=== PATIENT | female | born 1995 | race Caucasian/White ===

== ENCOUNTER 2021-12-04 23:22 | Emergency (ER) | payer OTHER, SELFPAY ==
[2021-12-04 23:23] VITALS: BP 118/65; PULSE 118; RESP 20; TEMP 36.3; O2SAT 100
--- NOTE | 2021-12-05 00:13 | ED.GENADULT ---
HPI - General Adult General Chief complaint: Extremity Problem,Nontraumatic Stated complaint: pain in bilateral legs Time Seen by Provider: 12/04/21 23:51 History of Present Illness HPI narrative: Patient is a 26-year-old female who presents ER with pain in her legs bilaterally. Ongoing for 2 weeks. Worsening over the last couple days. Reports she can barely touch the back of her thighs or knees or calves without having exquisite pain. She feels as though they are swollen but she has no pitting edema. She thinks that she had some bulging veins. No chest pain or chest pressure or difficulty breathing. No long distance car rides or recent trauma. She has an aunt who has antiphospholipid antibody and is prone to clotting. Patient has no known clotting disorder. She had outpatient blood work at a [facility] urgent care today. She had an unremarkable BMP/CBC/thyroid level. Patient reports she did recently have a viral illness but she took 2 days of prednisone and her coughing has since resolved. She took a COVID test at that time that was negative. Review of Systems Review of Systems: All systems reviewed & are unremarkable except as noted in HPI and below Constitutional: Constitutional: Denies chills, Denies fatigue and Denies fever(s) Cardiovascular: Cardiovascular: Denies chest pain, Denies rapid heart rate and Denies radiating jaw, neck or arm pain Respiratory: Respiratory: Denies chest congestion, Reports cough (Resolved) and Denies dyspnea Gastrointestinal: Gastrointestinal: Denies abdominal pain, Denies nausea and Denies vomiting Musculoskeletal: Musculoskeletal: Reports myalgias, Denies arthralgias, Denies joint swelling and Reports muscle cramps PMFSH Past Medical History Medical History (Updated 12/05/21 @ 02:39 by Santiago Montano MD) Healthy female adult Surgical History Surgical History (Updated 12/05/21 @ 00:44 by Santiago Montano MD) No history of previous surgery Social History Social History (Updated 12/05/21 @ 00:44 by Santiago Montano MD) Smoking status: Never smoker Exam Narrative: GENERAL: Well-appearing, well-nourished, and in no acute distress. HEAD: Normocephalic, atraumatic. EYES: PERRL and EOMI. CHEST: Clear to auscultation. No respiratory distress. HEART: Regular rate and rhythm. Normal peripheral pulses. ABDOMEN: Soft, nontender, nondistended. EXTREMITIES: Normal range of motion. No edema. Patient with reported discomfort to the posterior thighs and calves with negative Homans' sign. No bulging veins. No palpable spasm. SKIN: Warm, dry, no rash. NEURO: Alert and oriented x3. PSYCH: Normal mood and affect. Course Course Emergency Course: Pain improving with Toradol. Patient informed of results. Due to EMR downtime lab results are not transferring into the chart. CK level 115. Normal BMP. D-dimer 0.33. We have set up an ultrasound of bilateral lower extremities for tomorrow morning at 7:30 AM. Results will be sent to patient's PCP. Vital Signs Vital signs: Vital Signs Temperature 97.3 F L 12/04/21 23:23 Pulse Rate 118 H 12/04/21 23:23 Respiratory Rate 20 12/04/21 23:23 Blood Pressure 118/65 12/04/21 23:23 Pulse Oximetry 100 12/04/21 23:23 Oxygen Delivery Room Air 12/04/21 23:23 Temperature 97.3 F L 12/04/21 23:23 Pulse Rate 68 12/05/21 01:00 Respiratory Rate 16 12/05/21 01:00 Blood Pressure 109/76 12/05/21 01:00 Pulse Oximetry 100 12/05/21 01:00 Oxygen Delivery Room Air 12/04/21 23:23 Medical Decision Making Vital Signs Vital Signs: Vital Signs Temperature 97.3 F L 12/04/21 23:23 Pulse Rate 118 H 12/04/21 23:23 Respiratory Rate 20 12/04/21 23:23 Blood Pressure 118/65 12/04/21 23:23 Pulse Oximetry 100 12/04/21 23:23 Oxygen Delivery Room Air 12/04/21 23:23 Temperature 97.3 F L 12/04/21 23:23 Pulse Rate 68 12/05/21 01:00 Respiratory Rate 16 12/05/21 01:00 Blood Pressure 109/76 12/05
[2021-12-05] MEDS: SODIUM CHLORIDE 0.9% IV 1,000 ML 999 ML IV CONT (00:30)
[2021-12-05 01:00] VITALS: BP 109/76; PULSE 68; RESP 16; O2SAT 100
[2021-12-05] MEDS: KETOROLAC 30 MG/ML VIAL (*BKC) IV PUSH (01:19)
[2021-12-05] MEDS: Please add drug allergy info to patient profile. 1 EACH XX (01:27)
[2021-12-05 02:41] VITALS: BP 105/65; PULSE 87; RESP 18; O2SAT 100
[2021-12-05 03:01] LABS: D Dimer 0.33 ug/mL (<0.48)
[2021-12-05 03:03] LABS: Anion Gap 9 mmol/L (8-16); Blood Urea Nitrogen 19 mg/dL (7-17); Calcium 8.7 mg/dL (8.4-10.2); Carbon Dioxide 23 mmol/L (22-30); Chloride 105 mmol/L (98-107); Creatine Kinase 115 U/L (30-135); Estimated CRCL calculation 91 ml/min; Estimated Glomerular Filt Rate > 60; Glucose 98 mg/dL (65-110); Sodium 137 mmol/L (137-145)
== END 2021-12-05 02:58 | disposition home or self-care (01) ==
PROVIDERS: Emergency Provider Emergency Medicine
DX: M79.605 Pain in left leg (principal); M79.604 Pain in right leg
CPT/HCPCS: 36415; 80048; 82550; 85380; 96361; 96374; 99284; J1885; J7030

== ENCOUNTER 2021-12-05 08:06 | Outpatient (CLI) | payer OTHER, SELFPAY ==
--- NOTE | ~2021-12-05 | US_ITS ---
EXAMINATION: US venous doppler [facility] DATE: 12/05/2021 08:55 INDICATION: Lower limb pain and swelling. TECHNIQUE: Grayscale ultrasound images without and with compression and Doppler ultrasound images of the bilateral lower extremity veins were obtained. COMPARISON: None. FINDINGS: The visualized portions of right common femoral vein, profunda (deep) femoral vein, femoral vein, pop liteal vein, peroneal veins, posterior tibial veins, lesser saphenous vein, and greater saphenous vei n outflow are patent. The visualized portions of left common femoral vein, profunda femoral vein, femoral vein, popliteal v ein, peroneal veins, posterior tibial veins, lesser saphenous vein, and greater saphenous vein outflo w are patent. IMPRESSION: 1. No deep venous thrombosis. Reviewed, dictated and finalized at location A.
== END 2021-12-05 08:07 | disposition home or self-care (01) ==
PROVIDERS: PCP Nurse Practitioner Family; Visit Provider Nurse Practitioner Family
DX: M79.604 Pain in right leg (principal); M79.605 Pain in left leg
CPT/HCPCS: 93970